=== PATIENT | male | born 1960 | race Caucasian/White ===

== ENCOUNTER → 2017-04-09 | Outpatient (CLI) | payer MEDICARE ==
[~2017-04-09] MED LIST: ACETAMINOPHEN650 M3 PO; ALBUTEROL17 GM; ANBESOL9 G1 MM; ASA; ASPIRIN81 M1 PO; ASPIRIN81 M2 PO; BACLOFEN20 M1; BACLOFEN20 MG PO; BACTRIM 400-801 TA1 PO; BACTRIM DS TABL1 TA1 PO; BACTRIM DS TABL1 TA2 PO; BAYER ASPIRIN325 M1 PO; BENTYL20 MG PO; CHEWABLE ASPIRI81 MG PO; CIPRO PO; CIPRO250 MG PO; CLONAZEPAM0.5 MG PO; COMBIVENT INH14.7 GM INH; COMBIVENT U/D3 ML INH; DAKIN'S MODIF1000 ML EXT; DARVOCET-N 1001 TA1 DOB; DITROPAN PO; DITROPAN XL PO; DITROPAN XL5 M1 PO; DITROPAN5 MG PO; EFFEXOR-XR150 MG PO; ENALAPRIL/HCTZ1 TA3 PO; FLAGYL PO; FLEXERIL10 M1 PO; GENTLE LAXATIVE10 MG PO; HYDROCHLOROTHIA25 MG PO; HYDROCODON-ACE1 EAC5 PO; HYDROCODONE-APA1 T51 PO; HYDROCODONE/APAP PO; K-DUR20 ME1 PO; KEFLEX500 MG; KLONOPIN0.5 MG PO; LACTULOSE10 G/15 M1 PO; LEVAQUIN PO; LEVAQUIN750 M1 PO; LEVAQUIN750 MG PO; LEVOFLOXACIN500 MG PO; LOPRESSOR; LOPRESSOR100 MG PO; LORTAB 10/500 T1 TAB PO; LORTAB 5/500 TA1 TA1 PO; LORTAB 5/500 TA1 TA2; MACROBID100 MG PO; MACRODANTIN50 MG PO; METOPROLOL TAR100 MG; METOPROLOL TAR100 MG PO; METOPROLOL TAR25 MG PO; MICONAZOLE28 GM TP; MIRALAX17 GM PO; MOBIC15 MG PO; NIACIN1 GM MC; NIACIN500 M2 PO; NORCO 10-325 TA1 TAB PO; OPANA ER10 MG PO; OPANA ER20 M1 PO; OPANA ER20 MG; OPANA ER20 MG PO; OXYBUTYNIN15 MG/BOTT; OXYBUTYNIN15 MG/BOTT PO; PANTOPRAZOLE SO40 MG; PANTOPRAZOLE SO40 MG PO; PARAFON FORTE500 M2 PO; PHENERGAN25 M1 PO; PHENERGAN25 MG PO; PROTONIX PO; PYRIDIUM PO; PYRIDIUM100 MG PO; SANTYL15 G1 TP; SEROQUEL PO; SEROQUEL50 MG; SEROQUEL50 MG PO; ST. JOSEPH ASPI81 M2 PO; TIZANIDINE HCL4 M1 PO; TOPAMAX PO; ULORIC40 MG; ULORIC40 MG PO; VASERETIC 10-251 TAB; VASERETIC 10-251 TAB PO; VASOTEC10 MG PO; ZANAFLEX PO; ZANAFLEX4 M1; ZOFRAN 4 MG4 MG/2 ML IV; ZOFRAN PO
--- NOTE | ~2017-04-09 | MR165 ---
[facility]. [facility] A Service of [facility] & [facility] RADIOLOGY TEXT RESULTS PATIENT: CANDACE BELL SR LOCATION: [facility] : [birth year] UNIT #: [id number] AGE: [address]: Juanito Caro MD SEX: M ORDER DR: [id number] [address] [address] [id number] O MR#: [id number] Acc #: [id number] NAME: CANDACE BELL : 1960 SEX: M STUDY DATE/TIME: 04/09/2017 12:09 UNIT: [facility] ROOM: STUDY DESCRIPTION: MR Shoulder Wo Contrast Rt Attending Physician: Juanito Caro M.D. Referring Physician: Juanito Caro M.D. Ordering Physician: Juanito Caro M.D. Primary Care Physician: Juanito Caro M.D. MRI CENTER REPORT This report is preliminary unless electronic signature is present. EXAM MRI of the right shoulder, 04/09/2017. COMPARISON Right shoulder radiographs 01/08/2014. HISTORY Order states bilateral shoulder pain. History sheet states bilateral shoulder pain for years progressively worse over the last 6 months. Decreased range of motion. His arms are used extensively to move himself. Double amputee. No trauma and no reported shoulder surgery. FINDINGS There is moderate hypertrophic AC joint arthrosis with osteophyte formation and capsuloligamentous thickening. Coracoclavicular and coracoacromial ligaments are intact. There is a full-thickness essentially full-width supraspinatus tendon tear with tendon retraction over the middle third of the humeral head. There is generalized eisi-ct-ihgqcaal infraspinatus tendinosis without a tear. Subscapularis tendinosis is present diffusely with high-grade insertional central third tendinosis but no definite full-thickness tear. Teres minor tendon is intact. There is mild nonspecific atrophy. Atrophy of the teres minor muscle is a nonspecific finding. There is no supraspinatus muscle atrophy. There is biceps anchor and proximal long head biceps tendinosis without a tear. STS. [facility] A Service of [facility] & [facility] RADIOLOGY TEXT RESULTS PATIENT: CANDACE BELL SR [id number] [birth year] UNIT #: [id number] AGE: [address]: Juanito Caro MD SEX: M ORDER DR: Glenoid labrum is normal. Glenohumeral joint shows no effusion, chondral/osteochondral lesion, or visible loose body. There is mild inferior axillary recess region capsular inflammation. There is mild inflammation throughout the subacromial-subdeltoid and subcoracoid bursae. IMPRESSION 1. Full-thickness essentially full width retracted supraspinatus tendon tear without muscle atrophy. 2. Infraspinatus and subscapularis tendinosis without tear. 3. Moderate hypertrophic AC joint arthrosis. 4. Inflammation subacromial - subdeltoid and subcoracoid bursae. 5. Biceps tendinosis without tear. 6. Inferior glenohumeral suspected capsular inflammation. 1. 1. Dictated by... Angelica Tan M.D. THIS IS AN ELECTRONICALLY VERIFIED REPORT Angelica Tan M.D. at 04/11/2017 11:35 AM JUANA/pito TD: 04/10/2017 13:21 JOB #: [id number] MRI CENTER REPORT Page 1 of 1
--- NOTE | ~2017-04-09 | MR164 ---
[facility] A Service of [facility] & [facility] RADIOLOGY TEXT RESULTS PATIENT: CANDACE BELL SR LOCATION: [facility] : 62 UNIT #: [id number] AGE: [address]: Juanito Caro MD SEX: M ORDER DR: [id number] [address] [address] [id number] O MR#: [id number] Acc #: [id number] NAME: CANDACE BELL : 1960 SEX: M STUDY DATE/TIME: 04/09/2017 11:22 UNIT: [facility] ROOM: STUDY DESCRIPTION: MR Shoulder Wo Contrast Lt Attending Physician: Juanito Caro M.D. Referring Physician: Juanito Caro M.D. Ordering Physician: Juanito Caro M.D. Primary Care Physician: Juanito Caro M.D. MRI CENTER REPORT This report is preliminary unless electronic signature is present. EXAM MRI of the left shoulder without contrast HISTORY 57-year-old male complains of bilateral shoulder pain for years, progressively worse over the last 6 months. COMPARISON Left shoulder films 01/08/2014. FINDINGS Multiplanar multiecho imaging was performed of the left shoulder utilizing a high field magnet and dedicated protocol. There is moderately advanced AC joint arthropathy with prominent inferiorly-directed distal clavicular osteophyte with some mass effect on the right rotator cuff. Periarticular edema suggests some active inflammation. Marrow signal within the proximal humerus and glenoid are unremarkable except for small enthesopathic cysts at the cuff insertion. There is extensive rotator cuff tendinopathy involving supraspinatus and infraspinatus tendons with a full-thickness tear of the rotator cuff measuring about 2 cm medial to lateral by about 1.7 cm AP dimension. This is felt to involve the posterior supraspinatus tendon. There may be some extension to involve the infraspinatus tendon insertion as well. Teres minor tendon appears intact. The subscapularis tendon demonstrates tendinopathy but no definitive tear. No muscle atrophy or edema. There is degeneration of the superior labrum with absence of the biceps anchor and long tendon of the biceps compatible with a complete tear of the long tendon of the biceps. Anterior and posterior labrum unremarkable. Articular cartilage appears normal. The deltoid and extraarticular soft tissues appear normal. [facility] A Service of [facility] RADIOLOGY TEXT RESULTS PATIENT: CANDACE BELL SR LOCATION: [facility] : [birth year] UNIT #: [id number] AGE: [address]: Juanito Caro MD SEX: M ORDER DR: IMPRESSION 1. Diffuse rotator cuff tendinopathy predominantly involving the supraspinatus and infraspinatus tendons with approximately 2 cm x 1.7 cm full thickness tear within the distal attachment the rotator cuff primarily involving the supraspinatus tendon. No significant retraction or muscle atrophy. 2. AC joint arthropathy with periarticular edema and a prominent inferiorly-directed distal clavicular osteophyte. 3. Complete tear long tendon of the biceps. Dictated by... Phoebe Jimenes M.D. THIS IS AN ELECTRONICALLY VERIFIED REPORT Phoebe Jimenes M.D. at 04/11/2017 4:50 PM OTTO/carolina TD: 04/10/2017 06:33 JOB #: [id number] MRI CENTER REPORT Page 1 of 1
== END | disposition home or self-care (01) ==
LOC: SMRI 10:39
DX: M25.511 Pain in right shoulder (principal); S46.812A Strain of other muscles, fascia and tendons at shoulder and upper arm level, left arm, initial encounter; S46.212A Strain of muscle, fascia and tendon of other parts of biceps, left arm, initial encounter; M77.8 Other enthesopathies, not elsewhere classified; M19.012 Primary osteoarthritis, left shoulder; M25.512 Pain in left shoulder
CPT/HCPCS: 73221